=== PATIENT | male | born 1990 | race Caucasian/White ===

== ENCOUNTER 2018-11-10 16:27 | Emergency (ER) | payer OTHER ==
[2018-11-10] MEDS: ONDANSETRON (ODT) 4 MG TAB ODT (17:22)
[2018-11-10] MEDS: KETOROLAC 60 MG INJ IM (17:22)
== END 2018-11-10 18:33 | disposition home or self-care (01) ==
LOC: E/R 16:27
DX: S06.0X1A Concussion with loss of consciousness of 30 minutes or less, initial encounter (principal); R40.2142 Coma scale, eyes open, spontaneous, at arrival to emergency department; R40.2362 Coma scale, best motor response, obeys commands, at arrival to emergency department; R40.2252 Coma scale, best verbal response, oriented, at arrival to emergency department; S13.4XXA Sprain of ligaments of cervical spine, initial encounter; S39.92XA Unspecified injury of lower back, initial encounter; V49.50XA Passenger injured in collision with unspecified motor vehicles in traffic accident, initial encounter
CPT/HCPCS: 70450; 96372; 99285-25